=== PATIENT | male | born 1990 | race Two or more races ===

== ENCOUNTER 2020-03-03 09:33 | Outpatient (CLI) | payer OTHER ==
[~2020-03-03] VITALS: Ht 177.8 cm; Wt 83.9 kg
== END 2020-03-03 10:30 | disposition home or self-care (01) ==
LOC: OFIC 805 09:33
PROVIDERS: ATTEND Otolaryngology
DX: H90.3 Sensorineural hearing loss, bilateral (principal); H61.23 Impacted cerumen, bilateral; H93.A1 Pulsatile tinnitus, right ear